=== PATIENT | female | born 1970 | race Caucasian/White ===

== ENCOUNTER 2018-08-28 07:25 | Emergency (ER) | payer OTHER ==
[~2018-08-28] VITALS: Ht 162.6 cm; Wt 95.5 kg
[2018-08-28 07:27] VITALS: Ht 162.6 cm; Wt 95.5 kg
[2018-08-28] MEDS ORDERED: KETOROLAC 30 MG INJ IM STA (07:53)
[2018-08-28] MEDS ORDERED: HYDROCODONE/APAP (10/325) TAB PO ONE (08:00)
[2018-08-28 08:56] VITALS: BP 166/89; PULSE 78; RESP 18
[2018-08-28] MEDS ORDERED: HYDR-4011 PO (09:11)
--- NOTE | 2018-08-28 09:15 | ERD ---
ER Documentation Chief Complaint Chief Complaint rt hip pain radiating to rt knee x 2 weeks HPI This 48-year-old female presents with low back pain rating to the right hip and lower leg for last 2 weeks which is worsening. She had this on the left side for the last few years intermittently. She denies any history of trauma or inciting events recently. She is seen in another hospital and prescribed ibuprofen, Soma and prednisone. She had a normal Doppler and normal right knee x-ray. She has been to physical therapy without relief as well through her primary doctor. She has not seen a specialist for this or had additional treatment. Blood pressure is elevated triage and she states she has not taken her blood pressure medicine for the last 2 days due to pain. ROS All systems reviewed and are negative except as per history of present illness. Medications Home Meds Active Scripts Hydrocodone/Acetaminophen ([place] 5-325 Tablet) 1 Each Tablet, 1 TAB PO Q6H PRN for PAIN, #14 TAB Prov:SPENSER YO MD 08/28/18 Allergies Allergies: Coded Allergies: pioglitazone (Verified Allergy, Unknown, 08/28/18) PMhx/Soc Hx Miscellaneous Medical Probl: Yes (chol, htn, dm) Hx Alcohol Use: No Hx Substance Use: No Hx Tobacco Use: No Smoking Status: Never smoker FmHx Family History: No diabetes, No coronary disease, No other Physical Exam Vitals Vital Signs Date Temp Pulse Resp B/P (MAP) Pulse Ox O2 O2 Flow FiO2 Time Delivery Rate 08/28/18 98.1 78 18 166/89 98 Room Air 08:56 (114) 08/28/18 98.0 88 16 208/101 99 07:27 (136) Physical Exam Const: No acute distress Head: Atraumatic Eyes: Normal Conjunctiva ENT: Normal External Ears, Nose and Mouth. Neck: Full range of motion. No meningismus. Resp: Clear to auscultation bilaterally Cardio: Regular rate and rhythm, no murmurs Abd: Soft, non tender, non distended. Normal bowel sounds Skin: No petechiae or rashes Back: No midline or flank tenderness. Tenderness right L4-5 area and positive straight leg raise. No midline tenderness or deformities. No deficits. Ext: No cyanosis, or edema Neur: Awake and alert Psych: Normal Mood and Affect Results 24 hrs Laboratory Tests Test 08/28/18 08:06 POC Beta HCG, Qualitative NEGATIVE Current Medications Medications Dose Sig/Diana Start Time Status Last (Trade) Ordered Route PRN Stop Time Admin Dose Reason Admin 1 tab ONCE ONCE 08/28/18 DC 08/28/18 Acetaminophen PO 08:00 08:09 / 08/28/18 08:01 Hydrocodone Bitart ([place] (10/325)) Ketorolac 30 mg ONCE STAT 08/28/18 DC 08/28/18 Tromethamine IM 07:53 08:10 (Toradol) 08/28/18 07:55 Procedures/MDM Patient is given Toradol 30 mg IM and [place] 10 mg. Patient had some improvement in pain but incomplete relief. CT lumbar spine was performed given worsening symptoms with difficulty ambulating due to pain. Shows L4-L5 2-3 mm broad-based central disc protrusion with calcification and probable moderate central systolic stenosis. She has bilateral foraminal stenosis as well. Patient presents with signs and symptoms were appears to be sciatica without signs of cauda equina syndrome, signs of epidural abscess, infection, deficits. She will be treated with a short course of [place], continuation of therapy, current medications and primary care follow-up. Patient was advised she may need surgical evaluation for persistent symptoms despite therapy and medication. The patient was stable with no new complaints during the ER course. Clinically, there is no current evidence to suggest meningitis, sepsis, acute abdomen, pneumonia, stroke, acute coronary syndrome, pulmonary embolism, aortic dissecti on or any other emergent condition appearing to require further evaluation or hospitalization. Patient counseled regarding my diagnostic impression and care plan. Prior to discharge all questions answered. Pt agrees with treatment plan and understands strict return precautions. Pt is instructed to follow up with primary care provider within 24-48 hours. Precautionary instructions provided including instructions to return to the ER if not improving or for any worsening or changing symptoms or concerns. Patient's blood pressure was improved on serial recheck. Patient has no signs or symptoms to suggest hypertensive emergency or endorgan damage. Patient is advised to continue her blood pressure medication. Departure Diagnosis: Primary Impression: Sciatica of right side Additional Impression: Hypertension Hypertension type: essential hypertension Qualified Codes: I10 - Essential (primary) hypertension Condition: Stable Patient Instructions: Back Exercises, Lumbar, Hypertension, Established, Back Pain W/ Sciatica Additional Instructions: Continue current medications. See primary doctor for follow-up. May need specialty evaluation for persistent symptoms despite medications and therapy. Recheck for fevers, additional symptoms. SPNESER YO MD Aug 28, 2018 09:15
== END 2018-08-28 09:24 | disposition home or self-care (01) ==
LOC: FTE 07:25
DX: M54.31 Sciatica, right side (principal); I10 Essential (primary) hypertension; E11.9 Type 2 diabetes mellitus without complications
CPT/HCPCS: 72131; 81025; 96372; J1885; Z7502; Z7610